=== PATIENT | male | born 1955 | race Caucasian/White ===

== ENCOUNTER 2018-10-11 21:16 | Emergency (ER) | payer OTHER ==
[~2018-10-11] VITALS: Ht 170.2 cm; Wt 74.8 kg
[2018-10-11 21:21] VITALS: Ht 170.2 cm; Wt 74.8 kg
[2018-10-11 21:50] LABS: BASOPHIL % 0.5 % (0-2); PLATELET COUNT 163 x10^3mcL (130-400); RED CELL DISTRIBUTION WIDTH 13.2 % (11.5-14.5)
[2018-10-11 22:00] LABS: CALCIUM 8.1 mg/dL (8.5-10.1); CARBON DIOXIDE 31.8 mmol/L (21-32); CHLORIDE SERUM 103 mmol/L (98-107); CREATININE SERUM 1.2 mg/dL (0.7-1.3); GFR1 > 60 mL/min; GLUCOSE SERUM 149 mg/dL (74-106); POTASSIUM SERUM 4.2 mmol/L (3.5-5.1); SODIUM SERUM 141 mmol/L (136-145)
[2018-10-11 22:04] LABS: ALBUMIN 3.5 g/dL (3.4-5.0); ALKALINE PHOSPHATASE 87 U/L (46-116); ALT/SGPT 103 U/L (16-63); AST/SGOT 37 U/L (15-37); BILIRUBIN TOTAL 0.29 mg/dL (0.20-1.00); TOTAL PROTEIN, SERUM 7.3 g/dL (6.4-8.2)
[2018-10-11 23:11] LABS: microscopic required? YES; urine erythrocyte NEGATIVE (NEGATIVE)
[2018-10-11 23:18] LABS: AMPHETAMINE QUAL UR NONE DETECTED (See below)
[2018-10-12 00:55] VITALS: BP 154/85
== END 2018-10-12 00:55 | disposition home or self-care (01) ==
LOC: ED 21:16
PROVIDERS: Specialist
DX: F20.9 Schizophrenia, unspecified (principal); F31.9 Bipolar disorder, unspecified; F19.10 Other psychoactive substance abuse, uncomplicated; E86.0 Dehydration; F28 Other psychotic disorder not due to a substance or known physiological condition; I10 Essential (primary) hypertension; Z88.8 Allergy status to other drugs, medicaments and biological substances
CPT/HCPCS: G0480; J7030

== ENCOUNTER 2018-10-16 20:31 | Emergency (ER) | payer OTHER ==
[~2018-10-16] VITALS: Ht 170.2 cm; Wt 79.5 kg
[2018-10-16 20:35] VITALS: Ht 170.2 cm; Wt 79.5 kg
[2018-10-16 21:05] VITALS: BP 170/96
== END 2018-10-16 23:23 | disposition left against medical advice (07) ==
LOC: ED 20:31
DX: S09.8XXA Other specified injuries of head, initial encounter (principal); S01.112A Laceration without foreign body of left eyelid and periocular area, initial encounter; M79.651 Pain in right thigh; F31.9 Bipolar disorder, unspecified; I10 Essential (primary) hypertension; Z88.8 Allergy status to other drugs, medicaments and biological substances; V03.99XA Pedestrian with other conveyance injured in collision with car, pick-up truck or van, unspecified whether traffic or nontraffic accident, initial encounter; Y93.89 Activity, other specified; Y92.488 Other paved roadways as the place of occurrence of the external cause; Y99.8 Other external cause status
CPT/HCPCS: G0480; J2001

== ENCOUNTER 2020-01-09 19:34 | Emergency (ER) | payer OTHER ==
[~2020-01-09] VITALS: Ht 167.6 cm; Wt 71.2 kg
[2020-01-09 19:45] VITALS: Ht 167.6 cm; Wt 71.2 kg
[2020-01-09 22:16] VITALS: BP 161/94
== END 2020-01-09 22:17 | disposition home or self-care (01) ==
LOC: ED 19:34
DX: M75.21 Bicipital tendinitis, right shoulder (principal); F17.210 Nicotine dependence, cigarettes, uncomplicated; R51 Headache; I10 Essential (primary) hypertension; Z76.0 Encounter for issue of repeat prescription; Z88.8 Allergy status to other drugs, medicaments and biological substances
CPT/HCPCS: 99406